=== PATIENT | male | born 1960 | race Caucasian/White ===

== ENCOUNTER → 2023-04-23 10:11 | Outpatient (REF) | payer OTHER, SELFPAY | LOC: DHCBS HW 10:11 | PROVIDERS: ATTENDING PHYSICIAN Internal Medicine Cardiovascular Disease; FAMILY PHYSICIAN Family Medicine | DX: I31.39 Other pericardial effusion (noninflammatory) (principal) | CPT/HCPCS: 93308 ==

== ENCOUNTER 2023-08-03 13:09 | Emergency (ER) | payer OTHER, SELFPAY ==
[2023-08-03 13:17] VITALS: BP 155/73
[2023-08-03 13:41] LABS: % Basophils 0.9 % (0-2); % Eosinophils 0.3 % (0-6); % Immature Granulocytes 0.8 % (0-0.5); % Lymphocytes 11.4 % (20.5-51.1); % Monocytes 8.1 % (1.7-9.3); % Neutrophils 78.5 % (42.2-75.2); Absolute Basophils 0.1 10^3/uL (0-0.2); Absolute Immature Granulocytes 0.1 10^3/uL (0-0.05); Absolute Monocytes 0.7 10^3/uL (0.1-0.6); Absolute Neutrophils 7.2 10^3/uL (1.4-6.5); Hematocrit 43.1 % (39.0-52.0); Hemoglobin 14.3 g/dL (13.0-18.0); Mean Corp Hgb Conc. 33.2 g/dL (33.0-37.0); Mean Corpuscular Volume 93.5 fL (80.0-94.0); Mean Platelet Volume 10.7 fL (7.4-10.4); Nucleated Red Blood Cells % 0 % (-); Platelet Count 255 10^3/uL (130-400); Red Blood Cell Count 4.61 10^6/uL (4.70-6.10); Red Cell Dist. Width 17.5 % (11.5-14.5); White Blood Cell Count 9.1 10^3/uL (4.8-10.8)
[2023-08-03 13:59] LABS: ALT (SGPT) 28 U/L (0-50); AST (SGOT) 40 U/L (17-59); Albumin 4.5 g/dl (3.5-5.0); Alkaline Phosphatase 76 U/L (38-126); Blood Urea Nitrogen 31 mg/dl (9-20); Calcium 9.5 mg/dl (8.4-10.2); Carbon Dioxide 28 mmol/L (22-30); Chloride 104 mmol/L (98-107); Glucose 162 mg/dl (70-99); Potassium 4.7 mmol/L (3.5-5.1); Sodium 140 mmol/L (135-145); Total Bilirubin 0.6 mg/dl (0.2-1.3); eGFR > 60.00
[2023-08-03 15:28] VITALS: BP 169/87
--- NOTE | 2023-08-03 15:34 | ED.GENMED ---
History of Present Illness
General
Chief Complaint: Heart Rate Problem
Source: patient, records and previous hospital records
Exam Limitations: none
Time Seen by Provider: 08/03/23 15:18
Nursing documentation reviewed up to this point in time: agreed with
Travel History
Have you had any contact with someone who has COVID-19?: No
Do you have any symptoms of coronavirus? Fever > 100 degrees, chills, cough, shortness of breath, sore throat, loss of taste or smell, muscle aches, or headache?: No
History of Present Illness
History of Present Illness:
63-year-old male presents with palpitations fluttering in his chest since yesterday, no chest pain no shortness of breath earlier this year he was admitted with pericardial effusion states his symptoms are different elevated have A-fib in that time,
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
Past History
Past History
ED Past Medical History: Arrthythmia
ED Past Surgical History: Cardiac (Pericardial effusion)
Social History
Tobacco: Non-smoker
Alcohol: Occasional
Drug: None
Personal:
Living: with family
Employment: Employed
Review of Systems
Review of Systems
All Other Systems: Not applicable
Constitutional: Denies fever, fatigue or chills
Respiratory: Denies cough or trouble breathing
Cardiac: Reports palpitations; Denies chest pain or syncope
ABD/GI: Reports no symptoms
Musculoskeletal: Reports no symptoms
Skin: Reports no symptoms
Neurological: Reports no symptoms
Hematologic/Lymphatic: Reports no symptoms
Psychiatric: Reports no symptoms
Phy Exam
Physical Exam
Physical Exam:
Physical Exam
General: no apparent distress, not acutely ill
Neck: No jaundice
Heart: Regular soft murmur
Lungs: no acute respiratory distress. clear bilaterally
Abdomen: Nontender
Neuro: alert and oriented. no focal neurological deficits
Skin: no rash
Psychiatric: well kept. interactive and cooperative
Extremities: no edema. no calf tenderness.
Course
Orders/Labs/Results
Orders:
Orders
08/03/23 13:19
Electrocardiogram (*1) Urgent
Reason for Study: Atrial Fibrillation
EKG- Treatment ONCE
08/03/23 13:25
Complete Blood Count/With Diff Urgent
Comprehensive Metabolic Panel Urgent
08/03/23 15:29
Echo Follow up Study W Dop Urgent
Reason for Study: afluttler/fib
Comment: full study in 04/23/23
Abnormal Lab Results
08/03/23
13:25
RBC 4.61 L 10^6/uL
(4.70-6.10)
RDW 17.5 H %
(11.5-14.5)
MPV 10.7 H fL
(7.4-10.4)
Abs Immat Gran (auto) 0.1 H 10^3/uL
(0-0.05)
Absolute Neuts (auto) 7.2 H 10^3/uL
(1.4-6.5)
Absolute Lymphs (auto) 1.0 L 10^3/uL
(1.2-3.4)
Absolute Monos (auto) 0.7 H 10^3/uL
(0.1-0.6)
Immature Gran % 0.8 H %
(0-0.5)
Neutrophils % 78.5 H %
(42.2-75.2)
Lymphocytes % 11.4 L %
(20.5-51.1)
BUN 31 H mg/dl
(9-20)
Glucose 162 H mg/dl
(70-99)
08/03/23 13:25
05/13/24 13:25
Vital Signs
Initial and Last Documented VS:
Initial Vital Signs
Temp Pulse Resp BP Pulse Ox
98.0 F 88 18 155/73 95
08/03/23 13:17 08/03/23 13:17 08/03/23 13:17 08/03/23 13:17 08/03/23 13:17
Last Documented Vital Signs
Temp Pulse Resp BP Pulse Ox
98.0 F 88 18 155/73 95
08/03/23 13:17 08/03/23 13:17 08/03/23 13:17 08/03/23 13:17 08/03/23 13:17
MDM/Problems Addressed
Differential Diagnosis Includes:
A-fib a flutter paroxysmal SVT PVCs
MDM/Problems Addressed:
Palpitations
Chronic conditions affecting care:
Prior A-fib after pericardiocentesis,
*Pulse Oximetry
Patient hypoxic: no
*EKG
Interpreted by ED Provider?: Yes
Interpretation: normal
Comparison EKG: no comparison EKG present
Heart Rate: 78
Rate: normal
Rhythm: sinus
Ischemia: no ischemia
*Potato Chip Maker Interpretation
Rate: normal
Interpretation: normal
Heart Rate: 78
Rhythm: sinus
*Critical Care Note
Total Time (30-74mins, 75-104mins- exclusive of procedures): Not Applicable
Data Reviewed
Review of Other/Old Records Reveals: Records and Operative Reports
Source: patient and records
Update Note
Update Note:
Patient with a periprocedure PAF after pericardiocentesis, states he felt ill at that time does not feel ill now, though he does have some palpitations yesterday and today electrolytes are noted EKG noted for placement phototypesetting equipment monitor briefly
reviewed with cardiology get echo today, keep on the monitor here with an eye towards outpatient cardiac monitoring reviewed with patient and nursing
Update echo verbal report NAD no apparent arrhythmias here outpatient follow-up arranged
ED Attending Note
-
Portions of this chart may have been created with voice recognition software.� Occasional wrong word or��sound alike� substitutions may have occurred due to the inherent limitations of voice recognition software.
Discharge Plan
Departure
Patient Disposition: Home (Routine Discharge)
Date of Disposition: 08/03/23
Time of Disposition: 16:44
Patient with high blood pressure during this ER visit?: No
Condition: Good
Covid-19: Not Applicable
Discharge Problem:
Heart palpitations
Instructions: Palpitations (DC)
Prescriptions:
No Action
omeprazole magnesium [Prilosec OTC] 20 mg Tablet,Delayed Release (Dr/Ec)
20 mg PO BID
sildenafil (pulm.hypertension) 20 mg Tablet
20 mg PO DAILYPRN PRN (Reason: erectile dysfunction)
nebivolol 5 mg Tablet
5 mg PO DAILY
diphenhydramine HCl [Benadryl] 25 mg Capsule
75 mg PO HS PRN (Reason: sleep)
colchicine 0.6 mg Tablet
0.6 mg PO BID
bisacodyl [Dulcolax (bisacodyl)] 5 mg Tablet,Delayed Release (Dr/Ec)
15 mg PO DAILYPRN PRN (Reason: constipation)
indomethacin 50 mg Capsule
50 mg PO TID Qty: 36 0RF
Referrals:
Marisol Velásquez PA-C [Specified Professional Personl] - 08/24/23 7:40 am (You have a follow up visit at [facility] with Dr. Burgos's Marisol ESCOBAR, Please call with questions. The cardiology office will call you to arrange for a cardiac
monitor to be placed this week. )
UNKNOWN - PT DOES,NOT KNOW [Family Provider] -
Discharge Date and Time
Print Language: IRISH
[2023-08-03 16:59] VITALS: BP 154/75
== END 2023-08-03 17:09 | disposition home or self-care (01) ==
LOC: EMR 13:09
PROVIDERS: Emergency Medicine; EMERGENCY PHYSICIAN Emergency Medicine
DX: R00.2 Palpitations (principal)
CPT/HCPCS: 99284; 93308; 80053; 85025; 93005; 93321; 93325

== ENCOUNTER → 2024-02-12 07:16 | Outpatient (REF) | payer OTHER, SELFPAY | LOC: RCS 07:16 | PROVIDERS: ATTENDING PHYSICIAN Internal Medicine Cardiovascular Disease; FAMILY PHYSICIAN Family Medicine | DX: I35.0 Nonrheumatic aortic (valve) stenosis (principal); R06.02 Shortness of breath | CPT/HCPCS: 93306 ==